=== PATIENT | female | born 1955 | race Caucasian/White ===

== ENCOUNTER 2019-11-11 01:32 | Emergency (ER) | payer BC, MEDICARE, OTHER ==
[~2019-11-11] VITALS: Ht 154.9 cm; Wt 68.0 kg
[~2019-11-11 01:32] MED LIST: META-117; NEBI10TA2 PO; THYR60TA PO
[2019-11-11 02:54] LABS: Basophils # (auto) 0 10 ^3/uL (0-0.2); Basophils % (auto) 0.5 % (0.0-2.0); Eosinophils # (auto) 0.2 10 ^3/uL (0-0.8); Eosinophils % (auto) 1.9 % (0.0-7.0); Hematocrit 44.7 % (36.0-46.0); Hemoglobin 15.5 g/dL (12.2-16.2); Lymphocytes # (auto) 3.1 10 ^3/uL (0.4-5.4); Lymphocytes % (auto) 38.3 % (10.0-50.0); Mean Corpuscular Hemoglobin 31.5 pg (28.0-32.0); Mean Corpuscular Hgb Conc. 34.7 g/dL (32.0-36.0); Mean Corpuscular Volume 90.7 fL (80.0-100.0); Monocytes # (auto) 0.5 10 ^3/uL (0-1.3); Monocytes % (auto) 6.2 % (0.0-12.0); Neutrophils # (auto) 4.3 10 ^3/uL (1.6-8.6); Neutrophils % (auto) 53.1 % (37.0-80.0); Platelet Count (auto) 233 10^3/uL (140-450); Red Blood Cells 4.93 10^6/uL (4.0-5.20); Red Cell Distribution Width 12.7 % (11.8-14.3); White Blood Cell 8.1 10^3/uL (4.4-10.8)
[2019-11-11 03:09] LABS: INR 1.03 (0.9-1.15); Partial Thromboplastin Time 27.8 sec (23.64-32.05)
[2019-11-11 03:16] LABS: Alanine Aminotransferase 50 U/L (13-56); Albumin 3.7 g/dL (3.4-5.0); Anion Gap 6 (5-15); Aspartate Aminotransferase 28 U/L (15-37); Blood Urea Nitrogen 17 mg/dL (7-18); Calcium 9.2 mg/dL (8.5-10.1); Carbon Dioxide 28 mmol/L (21-32); Chloride 100 mmol/L (98-107); Glucose 355 mg/dL (74-106); Magnesium 2.1 mg/dL (1.6-2.6); Potassium 4.4 mmol/L (3.5-5.1); Sodium 134 mmol/L (136-145)
[2019-11-11 03:20] LABS: Alkaline Phosphatase 220 U/L (45-117); BUN/Creatinine Ratio 17.7; Bilirubin, Total 0.4 mg/dL (0.2-1.0); GFR African American 75 mL/min; GFR Non-African American 62 mL/min; Total Protein 7.2 g/dL (6.4-8.2)
[2019-11-11] MEDS ORDERED: cloNIDine HCL 0.1 MG TAB PO ONE (03:30)
[2019-11-11] MEDS ORDERED: OMEPRAZOLE 20MG/10ML ORAL SUSP PO ONE (04:15)
[2019-11-11 04:44] VITALS: BP 129/67
[2019-11-11] MEDS ORDERED: PANTOPRAZOLE 40 MG TAB PO ONE (04:45)
== END 2019-11-11 04:45 | disposition home or self-care (01) ==
LOC: ER 01:35
DX: K21.9 Gastro-esophageal reflux disease without esophagitis (principal); I16.0 Hypertensive urgency; M19.90 Unspecified osteoarthritis, unspecified site; I10 Essential (primary) hypertension; E07.9 Disorder of thyroid, unspecified
CPT/HCPCS: 36415; 71045; 80053; 83735; 83880; 84443; 84484; 85025; 85379; 85610; 85730; 93005

== ENCOUNTER 2020-02-08 18:34 | Emergency (ER) | payer OTHER ==
[~2020-02-08] VITALS: Ht 154.9 cm; Wt 68.0 kg
[~2020-02-08 18:34] MED LIST changes: -META-117; +[UNRECOGNIZED DRUG - CODE]
[2020-02-08 20:43] VITALS: BP 181/65
== END 2020-02-08 20:49 | disposition home or self-care (01) ==
LOC: ER 18:34
DX: S09.90XA Unspecified injury of head, initial encounter (principal); I10 Essential (primary) hypertension; Z90.49 Acquired absence of other specified parts of digestive tract; Z79.899 Other long term (current) drug therapy; W22.8XXA Striking against or struck by other objects, initial encounter; Y93.89 Activity, other specified; Y92.090 Kitchen in other non-institutional residence as the place of occurrence of the external cause; Y99.8 Other external cause status
CPT/HCPCS: 70450

== ENCOUNTER 2021-07-02 09:37 | Inpatient (IN) | payer OTHER ==
[~2021-07-02] VITALS: Ht 154.9 cm; Wt 71.3 kg
[~2021-07-02 09:37] MED LIST changes: +META800T37; -[UNRECOGNIZED DRUG - CODE]
[2021-07-02 10:34] LABS: Basophils # (auto) 0 10 ^3/uL (0-0.2); Basophils % (auto) 0.6 % (0.0-2.0); Eosinophils # (auto) 0.1 10 ^3/uL (0-0.8); Eosinophils % (auto) 1.5 % (0.0-7.0); Hemoglobin 15.5 g/dL (12.2-16.2); Lymphocytes # (auto) 1.8 10 ^3/uL (0.4-5.4); Lymphocytes % (auto) 23.7 % (10.0-50.0); Mean Corpuscular Hemoglobin 30.9 pg (28.0-32.0); Mean Corpuscular Hgb Conc. 34.5 g/dL (32.0-36.0); Mean Corpuscular Volume 89.6 fL (80.0-100.0); Monocytes # (auto) 0.4 10 ^3/uL (0-1.3); Monocytes % (auto) 4.6 % (0.0-12.0); Neutrophils # (auto) 5.4 10 ^3/uL (1.6-8.6); Neutrophils % (auto) 69.6 % (37.0-80.0); Nucleated Red Blood Cells % 0.1 %; Red Blood Cells 5.02 10^6/uL (4.0-5.20); Red Cell Distribution Width 12.6 % (11.8-14.3); White Blood Cell 7.7 10^3/uL (4.4-10.8)
[2021-07-02 10:50] LABS: Albumin 4.1 g/dL (3.4-5.0); Calcium 9.3 mg/dL (8.5-10.1); Potassium 4.3 mmol/L (3.5-5.1)
[2021-07-02 10:56] LABS: Bilirubin, Total 0.5 mg/dL (0.2-1.0); Total Protein 7.6 g/dL (6.4-8.2)
[2021-07-02 13:08] LABS: Urine Bacteria FEW /hpf (None Seen); Urine Blood Negative /uL (Negative); Urine Mucus FEW (None Seen); Urine Specific Gravity 1.008 (1.001-1.035); Urine WBC 6 /hpf (0 - 5)
[2021-07-03] MEDS ORDERED: ONDANSETRON HCL 4 MG/2 ML VIAL IV PRN (03:00)
[2021-07-03 03:42] LABS: Basophils # (auto) 0.1 10 ^3/uL (0-0.2); Basophils % (auto) 0.8 % (0.0-2.0); Eosinophils # (auto) 0.1 10 ^3/uL (0-0.8); Hematocrit 46.8 % (36.0-46.0); Hemoglobin 16.1 g/dL (12.2-16.2); Lymphocytes # (auto) 2.2 10 ^3/uL (0.4-5.4); Lymphocytes % (auto) 24.2 % (10.0-50.0); Mean Corpuscular Hemoglobin 30.7 pg (28.0-32.0); Mean Corpuscular Hgb Conc. 34.3 g/dL (32.0-36.0); Mean Corpuscular Volume 89.3 fL (80.0-100.0); Monocytes # (auto) 0.5 10 ^3/uL (0-1.3); Monocytes % (auto) 5.2 % (0.0-12.0); Neutrophils # (auto) 6.3 10 ^3/uL (1.6-8.6); Neutrophils % (auto) 68.8 % (37.0-80.0); Nucleated Red Blood Cells % 0.2 %; Red Blood Cells 5.25 10^6/uL (4.0-5.20); Red Cell Distribution Width 12.5 % (11.8-14.3); White Blood Cell 9.1 10^3/uL (4.4-10.8)
[2021-07-03 04:00] LABS: Albumin 4.3 g/dL (3.4-5.0); BUN/Creatinine Ratio 19.3; Calcium 9.9 mg/dL (8.5-10.1); Potassium 3.8 mmol/L (3.5-5.1)
[2021-07-03 04:03] LABS: Bilirubin, Total 0.6 mg/dL (0.2-1.0); Total Protein 7.9 g/dL (6.4-8.2)
[2021-07-03] MEDS: cloNIDine HCL 0.1 MG TAB PO PRN ×2 (04:54→12:09)
[2021-07-03 06:23] VITALS: BP 158/72
[2021-07-03] MEDS: SODIUM CHLORIDE 0.9% 1,000 ML IV SCH ×2 (07:03→16:20)
[2021-07-03] MEDS: ENOXAPARIN SOD 40 MG/0.4 ML SYRINGE SC SCH (08:54)
[2021-07-03] MEDS: ASPirin 81 mg TAB PO SCH (08:54)
[2021-07-03] MEDS: amLODIPine BESYLATE 5 MG TAB PO SCH (08:55)
[2021-07-03 09:00] VITALS: BP_SYST 117; BP_SYST 138; BP_DIAS 50; BP_DIAS 65
[2021-07-03] MEDS ORDERED: levoFLOXacin 500MG 100 ML IV SCH (10:00)
[2021-07-03 13:00] VITALS: BP 160/81
[2021-07-03 17:00] VITALS: BP 138/71
[2021-07-03] MEDS ORDERED: ATORVASTATIN 20 MG TAB PO SCH (22:00)
[2021-07-03 22:20] VITALS: BP 145/60
[2021-07-04] MEDS: SODIUM CHLORIDE 0.9% 1,000 ML IV SCH ×2 (02:34→17:01)
[2021-07-04 05:14] VITALS: BP 130/61
[2021-07-04 06:06] LABS: Basophils # (auto) 0 10 ^3/uL (0-0.2); Basophils % (auto) 0.5 % (0.0-2.0); Eosinophils # (auto) 0.2 10 ^3/uL (0-0.8); Eosinophils % (auto) 2.3 % (0.0-7.0); Hematocrit 37.4 % (36.0-46.0); Hemoglobin 13.3 g/dL (12.2-16.2); Lymphocytes # (auto) 2.2 10 ^3/uL (0.4-5.4); Lymphocytes % (auto) 30.7 % (10.0-50.0); Mean Corpuscular Hemoglobin 31.3 pg (28.0-32.0); Mean Corpuscular Hgb Conc. 35.4 g/dL (32.0-36.0); Mean Corpuscular Volume 88.4 fL (80.0-100.0); Monocytes # (auto) 0.4 10 ^3/uL (0-1.3); Monocytes % (auto) 6.3 % (0.0-12.0); Neutrophils # (auto) 4.2 10 ^3/uL (1.6-8.6); Neutrophils % (auto) 60.2 % (37.0-80.0); Red Blood Cells 4.24 10^6/uL (4.0-5.20); Red Cell Distribution Width 12.7 % (11.8-14.3)
[2021-07-04 06:42] LABS: Potassium 4.2 mmol/L (3.5-5.1)
[2021-07-04 06:52] LABS: BUN/Creatinine Ratio 19.5; Calcium 8.8 mg/dL (8.5-10.1)
[2021-07-04] MEDS: levoFLOXacin 250MG 50 ML IV SCH (08:24)
[2021-07-04] MEDS: ASPirin 81 mg TAB PO SCH ×2 (08:24→16:58)
[2021-07-04] MEDS: ENOXAPARIN SOD 40 MG/0.4 ML SYRINGE SC SCH (08:24)
[2021-07-04] MEDS: amLODIPine BESYLATE 5 MG TAB PO SCH (08:25)
[2021-07-04 09:21] VITALS: BP 122/78
[2021-07-04 12:26] VITALS: BP 156/74
[2021-07-04 15:54] LABS: Cholesterol 180 mg/dL (< 200); HDL Cholesterol 41 mg/dL (40-59); LDL Cholesterol 118 mg/dL (< 100); Triglycerides 137 mg/dL (< 150)
[2021-07-04 16:21] VITALS: BP 144/77
[2021-07-04] MEDS: ATORVASTATIN 20 MG TAB PO SCH ×2 (17:01→22:27)
[2021-07-04 20:00] VITALS: BP 133/68
[2021-07-04 22:52] VITALS: BP 133/68
[2021-07-05 05:23] VITALS: BP 154/71
[2021-07-05 06:00] LABS: Basophils # (auto) 0.1 10 ^3/uL (0-0.2); Basophils % (auto) 1.3 % (0.0-2.0); Eosinophils # (auto) 0.2 10 ^3/uL (0-0.8); Eosinophils % (auto) 2.4 % (0.0-7.0); Hematocrit 38.1 % (36.0-46.0); Hemoglobin 13.5 g/dL (12.2-16.2); Lymphocytes # (auto) 2.4 10 ^3/uL (0.4-5.4); Lymphocytes % (auto) 33.6 % (10.0-50.0); Mean Corpuscular Hemoglobin 31.4 pg (28.0-32.0); Mean Corpuscular Hgb Conc. 35.5 g/dL (32.0-36.0); Mean Corpuscular Volume 88.5 fL (80.0-100.0); Monocytes # (auto) 0.5 10 ^3/uL (0-1.3); Monocytes % (auto) 6.6 % (0.0-12.0); Neutrophils # (auto) 3.9 10 ^3/uL (1.6-8.6); Neutrophils % (auto) 56.1 % (37.0-80.0); Red Cell Distribution Width 12.4 % (11.8-14.3)
[2021-07-05 06:18] LABS: Calcium 9.1 mg/dL (8.5-10.1); Potassium 4.4 mmol/L (3.5-5.1)
[2021-07-05 06:20] LABS: BUN/Creatinine Ratio 21.6
[2021-07-05 08:32] VITALS: BP 154/83
[2021-07-05] MEDS: levoFLOXacin 250MG 50 ML IV SCH (09:45)
[2021-07-05] MEDS: amLODIPine BESYLATE 5 MG TAB PO SCH (09:46)
[2021-07-05] MEDS: ASPirin 81 mg TAB PO SCH (09:46)
[2021-07-05] MEDS: SODIUM CHLORIDE 0.9% 1,000 ML IV SCH (09:47)
[2021-07-05] MEDS: ENOXAPARIN SOD 40 MG/0.4 ML SYRINGE SC SCH (09:56)
[2021-07-05 13:00] VITALS: BP 140/67
[2021-07-05 17:14] VITALS: BP 152/75
[2021-07-05] MEDS: ATORVASTATIN 20 MG TAB PO SCH (21:06)
[2021-07-05 22:00] VITALS: BP 152/71
[2021-07-06] MEDS ORDERED: TEMAZEPAM 15 MG CAP PO ONE (01:00)
[2021-07-06 05:00] VITALS: BP 126/60
[2021-07-06] MEDS: SODIUM CHLORIDE 0.9% 1,000 ML IV SCH ×3 (05:44→21:52)
[2021-07-06 06:55] LABS: Basophils # (auto) 0.1 10 ^3/uL (0-0.2); Basophils % (auto) 0.5 % (0.0-2.0); Eosinophils # (auto) 0.2 10 ^3/uL (0-0.8); Eosinophils % (auto) 1.7 % (0.0-7.0); Hematocrit 38.1 % (36.0-46.0); Hemoglobin 13.4 g/dL (12.2-16.2); Lymphocytes # (auto) 2.1 10 ^3/uL (0.4-5.4); Lymphocytes % (auto) 21.6 % (10.0-50.0); Mean Corpuscular Hemoglobin 31.2 pg (28.0-32.0); Mean Corpuscular Hgb Conc. 35.2 g/dL (32.0-36.0); Mean Corpuscular Volume 88.6 fL (80.0-100.0); Monocytes # (auto) 0.6 10 ^3/uL (0-1.3); Monocytes % (auto) 6.5 % (0.0-12.0); Neutrophils # (auto) 6.7 10 ^3/uL (1.6-8.6); Neutrophils % (auto) 69.7 % (37.0-80.0); Nucleated Red Blood Cells % 0.1 %; Red Blood Cells 4.31 10^6/uL (4.0-5.20); Red Cell Distribution Width 12.5 % (11.8-14.3); White Blood Cell 9.6 10^3/uL (4.4-10.8)
[2021-07-06 07:06] LABS: Calcium 9.3 mg/dL (8.5-10.1); Potassium 4.2 mmol/L (3.5-5.1)
[2021-07-06 07:13] LABS: BUN/Creatinine Ratio 18.3
[2021-07-06] MEDS: levoFLOXacin 250MG 50 ML IV SCH (08:48)
[2021-07-06] MEDS: amLODIPine BESYLATE 5 MG TAB PO SCH (08:48)
[2021-07-06] MEDS: ASPirin 81 mg TAB PO SCH (08:48)
[2021-07-06] MEDS: ENOXAPARIN SOD 40 MG/0.4 ML SYRINGE SC SCH (08:49)
[2021-07-06 08:52] VITALS: BP 148/75
[2021-07-06 13:10] VITALS: BP 135/67
[2021-07-06 16:55] VITALS: BP 144/80
[2021-07-06] MEDS: ATORVASTATIN 20 MG TAB PO SCH (21:47)
[2021-07-06 22:23] VITALS: BP 148/75
[2021-07-07 04:38] VITALS: BP 162/68
[2021-07-07] MEDS: amLODIPine BESYLATE 5 MG TAB PO SCH (06:03)
[2021-07-07 07:01] LABS: Potassium 4.1 mmol/L (3.5-5.1)
[2021-07-07 07:06] LABS: BUN/Creatinine Ratio 20.5; Calcium 8.5 mg/dL (8.5-10.1)
[2021-07-07 07:12] LABS: Basophils # (auto) 0.1 10 ^3/uL (0-0.2); Basophils % (auto) 0.7 % (0.0-2.0); Eosinophils # (auto) 0.2 10 ^3/uL (0-0.8); Hematocrit 38.6 % (36.0-46.0); Hemoglobin 13.5 g/dL (12.2-16.2); Lymphocytes # (auto) 2.3 10 ^3/uL (0.4-5.4); Lymphocytes % (auto) 27.4 % (10.0-50.0); Mean Corpuscular Hemoglobin 31.1 pg (28.0-32.0); Mean Corpuscular Volume 88.9 fL (80.0-100.0); Monocytes # (auto) 0.6 10 ^3/uL (0-1.3); Monocytes % (auto) 6.6 % (0.0-12.0); Neutrophils # (auto) 5.3 10 ^3/uL (1.6-8.6); Neutrophils % (auto) 63.3 % (37.0-80.0); Nucleated Red Blood Cells % 0.1 %; Red Blood Cells 4.34 10^6/uL (4.0-5.20); Red Cell Distribution Width 12.4 % (11.8-14.3); White Blood Cell 8.3 10^3/uL (4.4-10.8)
[2021-07-07 09:00] VITALS: BP 147/57
[2021-07-07] MEDS: levoFLOXacin 250MG 50 ML IV SCH (09:22)
[2021-07-07] MEDS: ENOXAPARIN SOD 40 MG/0.4 ML SYRINGE SC SCH (09:22)
[2021-07-07] MEDS: ASPirin 81 mg TAB PO SCH (09:22)
[2021-07-07] MEDS ORDERED: LEVO750T64 PO (09:37)
[2021-07-07] MEDS ORDERED: ASPI1CHW15 PO (09:37)
[2021-07-07] MEDS ORDERED: ATOR20TA50 PO (09:37)
[2021-07-07] MEDS ORDERED: AML5T PO (09:37)
[2021-07-07 12:27] VITALS: BP 147/75
[2021-07-07] MEDS: SODIUM CHLORIDE 0.9% 1,000 ML IV SCH (13:18)
[2021-07-10] MEDS ORDERED: ATOR20TA50 PO (15:28)
[2021-07-12] MEDS ORDERED: AML5T PO (11:35)
[2021-07-12] MEDS ORDERED: ASPI1TAB20 PO (11:35)
[2021-07-12] MEDS ORDERED: LEVO750T64 PO (11:35)
[2021-07-12] MEDS ORDERED: ATOR40TA52 PO (11:35)
== END 2021-07-07 15:32 | disposition home or self-care (01) | DRG 65 ==
LOC: ER 09:37 → OVERFLOW 07-03 02:56 → CENTRAL 07-03 05:10
PROVIDERS: ADMIT Nurse Practitioner; ATTEND Internal Medicine Pulmonary Disease
DX: I63.89 Other cerebral infarction (principal); N39.0 Urinary tract infection, site not specified; G81.90 Hemiplegia, unspecified affecting unspecified side; I10 Essential (primary) hypertension; E03.9 Hypothyroidism, unspecified; R47.01 Aphasia; E78.5 Hyperlipidemia, unspecified; Z20.822 Contact with and (suspected) exposure to COVID-19; M19.90 Unspecified osteoarthritis, unspecified site; Z79.82 Long term (current) use of aspirin; Z88.0 Allergy status to penicillin; Z80.1 Family history of malignant neoplasm of trachea, bronchus and lung; Z80.3 Family history of malignant neoplasm of breast; Z80.41 Family history of malignant neoplasm of ovary; Z80.8 Family history of malignant neoplasm of other organs or systems; Z81.8 Family history of other mental and behavioral disorders; Z82.0 Family history of epilepsy and other diseases of the nervous system; Z82.3 Family history of stroke; Z82.49 Family history of ischemic heart disease and other diseases of the circulatory system; Z82.5 Family history of asthma and other chronic lower respiratory diseases; Z82.62 Family history of osteoporosis; Z83.3 Family history of diabetes mellitus; Z90.710 Acquired absence of both cervix and uterus; Z98.51 Tubal ligation status
CPT/HCPCS: 36415; 70450; 70551; 80048; 80053; 80061; 81001; 82270; 82550; 84443; 85025; 87426; 93005; 93306; 93886; 96365; 96372; G0378; J1956

== ENCOUNTER 2021-10-09 22:19 | Inpatient (IN) | payer OTHER ==
[~2021-10-09] VITALS: Ht 154.9 cm; Wt 67.7 kg
[~2021-10-09 22:19] MED LIST changes: +AML5T PO; +ASPI1CHW15 PO; +ASPI1TAB20 PO; +ATOR20TA50 PO; +ATOR40TA52 PO; +LEVO750T64 PO; -META800T37; -NEBI10TA2 PO; -THYR60TA PO
[2021-10-09] MEDS ORDERED: LABETALOL HCL 5 MG/ML 4ML SYRINGE IV ONE (22:45)
[2021-10-09] MEDS ORDERED: SODIUM CHLORIDE 0.9% 1,000 ML IV ONE (23:30)
[2021-10-09 23:31] LABS: Basophils # (auto) 0.1 10 ^3/uL (0-0.2); Basophils % (auto) 0.9 % (0.0-2.0); Eosinophils # (auto) 0.3 10 ^3/uL (0-0.8); Eosinophils % (auto) 3.5 % (0.0-7.0); Hematocrit 42.2 % (36.0-46.0); Hemoglobin 14.7 g/dL (12.2-16.2); Lymphocytes % (auto) 40.9 % (10.0-50.0); Mean Corpuscular Hemoglobin 31.1 pg (28.0-32.0); Mean Corpuscular Hgb Conc. 34.8 g/dL (32.0-36.0); Mean Corpuscular Volume 89.5 fL (80.0-100.0); Monocytes # (auto) 0.3 10 ^3/uL (0-1.3); Monocytes % (auto) 4.4 % (0.0-12.0); Neutrophils # (auto) 3.7 10 ^3/uL (1.6-8.6); Neutrophils % (auto) 50.3 % (37.0-80.0); Nucleated Red Blood Cells % 0.1 %; Red Blood Cells 4.72 10^6/uL (4.0-5.20); Red Cell Distribution Width 13.8 % (11.8-14.3); White Blood Cell 7.4 10^3/uL (4.4-10.8)
[2021-10-09 23:49] LABS: Albumin 4.2 g/dL (3.4-5.0); Calcium 9.4 mg/dL (8.5-10.1); Potassium 3.3 mmol/L (3.5-5.1)
[2021-10-09 23:52] LABS: Bilirubin, Total 0.4 mg/dL (0.2-1.0); Total Protein 7.4 g/dL (6.4-8.2)
[2021-10-09] MEDS ORDERED: IOHEXOL 350 MG/ML 100ML IJ ONE (23:53)
[2021-10-10] MEDS ORDERED: LABETALOL INJECTION 250 MG in SODIUM CHL 0.9% 200 ML IV ONE (02:30)
[2021-10-10] MEDS ORDERED: cloNIDine HCL 0.1 MG TAB PO PRN (03:00)
[2021-10-10] MEDS ORDERED: TEMAZEPAM 15 MG CAP PO PRN (03:15)
[2021-10-10] MEDS ORDERED: NITROGLYCERIN 0.4 MG SL TAB SL PRN (03:15)
[2021-10-10] MEDS ORDERED: ONDANSETRON HCL 4 MG/2 ML VIAL IV PRN (03:15)
[2021-10-10] MEDS ORDERED: ACETAMINOPHEN 325 MG TAB PO PRN (03:15)
[2021-10-10] MEDS ORDERED: MORPHINE SULFATE INJECTION 2 MG/ML SYRG IV PRN (03:15)
[2021-10-10 05:32] VITALS: BP_SYST 170; BP_DIAS 61; BP_DIAS 67
[2021-10-10 08:55] VITALS: BP 129/57
[2021-10-10] MEDS ORDERED: ASPirin 81 mg TAB PO SCH (10:00)
[2021-10-10] MEDS: VALSARTAN 80 MG TAB PO SCH (11:27)
[2021-10-10] MEDS: ENOXAPARIN SOD 40 MG/0.4 ML SYRINGE SC SCH (11:28)
[2021-10-10] MEDS: amLODIPine BESYLATE 5 MG TAB PO SCH (11:28)
[2021-10-10] MEDS ORDERED: DEXTROSE (50%) 50ML SYRG IV PRN (12:30)
[2021-10-10] MEDS ORDERED: POTASSIUM EFFERVESENT TAB 25 MEQ PO ONE (12:30)
[2021-10-10 13:00] VITALS: BP 149/57
[2021-10-10 17:00] VITALS: BP 138/73
[2021-10-10 17:29] LABS: Urine Bacteria NONE SEEN /hpf (None Seen); Urine Blood Negative /uL (Negative); Urine Specific Gravity 1.005 (1.001-1.035); Urine WBC <1 /hpf (0 - 5)
[2021-10-10 17:30] LABS: Alcohol, Urine < 3.0 mg/dL (0-10); Amphetamine Screen, Urine NEGATIVE (NEGATIVE); Barbiturate Scree,Urine NEGATIVE (NEGATIVE); Benzodiazephine Screen, Urine NEGATIVE (NEGATIVE); Cannabinoid Screen, Urine NEGATIVE (NEGATIVE); Cocaine Screen, Urine NEGATIVE (NEGATIVE); Opiate Scree,Urine NEGATIVE (NEGATIVE); Phencyclidine Screen, Urine NEGATIVE (NEGATIVE)
[2021-10-10] MEDS: InsuLIN REG 1unit/0.01ml Soln (100units/ml) SC SCH ×2 (18:00→23:44)
[2021-10-10] MEDS: ACCU-CHEK COMFORT CURVE STRIP VI SCH ×2 (18:07→23:44)
[2021-10-10 22:00] VITALS: BP 130/77
[2021-10-10] MEDS ORDERED: ATORVASTATIN 20 MG TAB PO SCH (22:00)
[2021-10-11 05:00] VITALS: BP 128/53
[2021-10-11] MEDS: InsuLIN REG 1unit/0.01ml Soln (100units/ml) SC SCH ×2 (05:42→12:19)
[2021-10-11] MEDS: ACCU-CHEK COMFORT CURVE STRIP VI SCH ×2 (05:42→12:00)
[2021-10-11 06:34] LABS: Basophils # (auto) 0 10 ^3/uL (0-0.2); Basophils % (auto) 0.7 % (0.0-2.0); Eosinophils # (auto) 0.2 10 ^3/uL (0-0.8); Eosinophils % (auto) 2.7 % (0.0-7.0); Hematocrit 38.8 % (36.0-46.0); Hemoglobin 13.7 g/dL (12.2-16.2); Lymphocytes # (auto) 2.4 10 ^3/uL (0.4-5.4); Lymphocytes % (auto) 36.1 % (10.0-50.0); Mean Corpuscular Hemoglobin 31.7 pg (28.0-32.0); Mean Corpuscular Hgb Conc. 35.4 g/dL (32.0-36.0); Mean Corpuscular Volume 89.7 fL (80.0-100.0); Monocytes # (auto) 0.4 10 ^3/uL (0-1.3); Monocytes % (auto) 6.1 % (0.0-12.0); Neutrophils # (auto) 3.7 10 ^3/uL (1.6-8.6); Neutrophils % (auto) 54.4 % (37.0-80.0); Nucleated Red Blood Cells % 0.1 %; Red Blood Cells 4.33 10^6/uL (4.0-5.20); Red Cell Distribution Width 13.7 % (11.8-14.3); White Blood Cell 6.8 10^3/uL (4.4-10.8)
[2021-10-11 07:00] LABS: Calcium 9.4 mg/dL (8.5-10.1); Magnesium 2.4 mg/dL (1.6-2.6); Potassium 4.2 mmol/L (3.5-5.1)
[2021-10-11 07:06] LABS: Albumin 3.5 g/dL (3.4-5.0); BUN/Creatinine Ratio 15.5; Bilirubin, Total 0.5 mg/dL (0.2-1.0); Total Protein 6.7 g/dL (6.4-8.2)
[2021-10-11] MEDS: VALSARTAN 80 MG TAB PO SCH (08:32)
[2021-10-11] MEDS: amLODIPine BESYLATE 5 MG TAB PO SCH (08:32)
[2021-10-11] MEDS: ENOXAPARIN SOD 40 MG/0.4 ML SYRINGE SC SCH (08:33)
[2021-10-11 09:03] VITALS: BP 150/67
[2021-10-11] MEDS ORDERED: ASPirin 81 mg TAB PO SCH (10:00)
[2021-10-11] MEDS ORDERED: CLOPIDOGREL BISULFATE 75 MG TAB PO SCH (10:00)
[2021-10-11 13:00] VITALS: BP 139/57
[2021-10-11] MEDS ORDERED: VALS40TA2 PO (13:36)
[2021-10-11] MEDS ORDERED: VALS80TA4 PO (13:58)
[2021-10-11] MEDS ORDERED: CLOP75TA28 PO (13:58)
[2021-10-11] MEDS ORDERED: ASPI-378 PO (13:58)
[2021-10-11] MEDS ORDERED: AML5T PO (14:10)
[2021-10-11 17:21] VITALS: BP 131/71
[2021-10-11 17:22] VITALS: BP 150/67
== END 2021-10-11 19:48 | disposition home or self-care (01) | DRG 66 ==
LOC: EDBD 22:19 → ER 22:19 → TELE 10-10 03:02 → TELE-EAST 10-10 04:54
PROVIDERS: ADMIT Nurse Practitioner; ATTEND Internal Medicine
DX: I63.512 Cerebral infarction due to unspecified occlusion or stenosis of left middle cerebral artery (principal); E03.9 Hypothyroidism, unspecified; E87.6 Hypokalemia; E78.5 Hyperlipidemia, unspecified; R47.01 Aphasia; R73.03 Prediabetes; Z90.49 Acquired absence of other specified parts of digestive tract; Z98.51 Tubal ligation status; Z82.61 Family history of arthritis; Z82.5 Family history of asthma and other chronic lower respiratory diseases; Z82.49 Family history of ischemic heart disease and other diseases of the circulatory system; Z82.62 Family history of osteoporosis; Z80.3 Family history of malignant neoplasm of breast; Z80.1 Family history of malignant neoplasm of trachea, bronchus and lung; Z80.42 Family history of malignant neoplasm of prostate; Z80.8 Family history of malignant neoplasm of other organs or systems; Z88.0 Allergy status to penicillin; I10 Essential (primary) hypertension
CPT/HCPCS: 36415; 70450; 70496; 70498; 70551; 80053; 80307; 81001; 82306; 82962; 83036; 83735; 84443; 85025; 92607; 93005; 96361; 96374; 99291; G0378; J1815; J3490

== ENCOUNTER 2024-01-31 22:21 | Inpatient (IN) | payer OTHER ==
[~2024-01-31] VITALS: Ht 154.9 cm; Wt 68.5 kg
[~2024-01-31 22:21] MED LIST changes: -ASPI1CHW15 PO; -ASPI1TAB20 PO; -ATOR20TA50 PO; +CLOP75TA28 PO; +LEVO750T40 PO; -LEVO750T64 PO; +VALS80TA4 PO
[2024-01-31] MEDS: hydrALAZINE HCL 20 MG/ML VL IV ONE (23:45)
[2024-01-31] MEDS: cloNIDine HCL 0.1 MG TAB PO ONE (23:45)
[2024-02-01 00:23] LABS: Basophils # (auto) 0.1 10 ^3/uL (0-0.2); Basophils % (auto) 0.7 % (0.0-2.0); Eosinophils # (auto) 0.1 10 ^3/uL (0-0.8); Eosinophils % (auto) 1.3 % (0.0-7.0); Hematocrit 45.5 % (36.0-46.0); Hemoglobin 15.7 g/dL (12.2-16.2); Lymphocytes # (auto) 2.7 10 ^3/uL (0.4-5.4); Lymphocytes % (auto) 33.5 % (10.0-50.0); Mean Corpuscular Hemoglobin 31.7 pg (28.0-32.0); Mean Corpuscular Hgb Conc. 34.4 g/dL (32.0-36.0); Mean Corpuscular Volume 92.2 fL (80.0-100.0); Monocytes # (auto) 0.5 10 ^3/uL (0-1.3); Monocytes % (auto) 6.3 % (0.0-12.0); Neutrophils # (auto) 4.7 10 ^3/uL (1.6-8.6); Neutrophils % (auto) 58.2 % (37.0-80.0); Nucleated Red Blood Cells % 0.1 %; Red Blood Cells 4.94 10^6/uL (4.0-5.20); Red Cell Distribution Width 13.1 % (11.8-14.3); White Blood Cell 8.1 10^3/uL (4.4-10.8)
[2024-02-01 00:39] LABS: Alanine Aminotransferase 47 U/L (7-40); Albumin 4.5 g/dL (3.2-4.8); Alkaline Phosphatase 126 U/L (46-116); Anion Gap 7 (5-15); Aspartate Aminotransferase 35 U/L (13-40); BUN/Creatinine Ratio 11.8 (10.0-20.0); Blood Urea Nitrogen 12 mg/dL (9-23); Calcium 10.3 mg/dL (8.7-10.4); Carbon Dioxide 28 mmol/L (20-30); Chloride 104 mmol/L (98-107); Glucose 127 mg/dL (74-106); Potassium 4.2 mmol/L (3.5-5.1); Sodium 139 mmol/L (136-145)
[2024-02-01 00:40] LABS: Bilirubin, Total 0.4 mg/dL (0.2-1.0); Total Protein 7.2 g/dL (5.7-8.2)
[2024-02-01 01:35] VITALS: PULSE 64; RESP 18; O2SAT 99
[2024-02-01] MEDS: hydrALAZINE HCL 20 MG/ML VL IV ONE (01:42)
[2024-02-01] MEDS: ASPirin 81 mg TAB PO ONE (02:38)
[2024-02-01] MEDS: cloNIDine HCL 0.1 MG TAB PO ONE (02:39)
[2024-02-01] MEDS ORDERED: hydrALAZINE HCL 20 MG/ML VL IV PRN (04:30)
[2024-02-01] MEDS ORDERED: ONDANSETRON HCL 4 MG/2 ML VIAL IV PRN (04:30)
[2024-02-01] MEDS ORDERED: DOCUSATE SOD 100 MG CAP PO PRN (04:30)
[2024-02-01] MEDS ORDERED: ACETAMINOPHEN 325 MG TAB PO PRN (04:30)
[2024-02-01 05:14] LABS: Basophils # (auto) 0.1 10 ^3/uL (0-0.2); Basophils % (auto) 0.8 % (0.0-2.0); Eosinophils # (auto) 0.1 10 ^3/uL (0-0.8); Eosinophils % (auto) 1.2 % (0.0-7.0); Hematocrit 41.6 % (36.0-46.0); Hemoglobin 14.6 g/dL (12.2-16.2); Lymphocytes # (auto) 2.9 10 ^3/uL (0.4-5.4); Lymphocytes % (auto) 31.5 % (10.0-50.0); Mean Corpuscular Hemoglobin 31.9 pg (28.0-32.0); Mean Corpuscular Hgb Conc. 35.1 g/dL (32.0-36.0); Mean Corpuscular Volume 90.9 fL (80.0-100.0); Monocytes # (auto) 0.5 10 ^3/uL (0-1.3); Monocytes % (auto) 5.3 % (0.0-12.0); Neutrophils # (auto) 5.7 10 ^3/uL (1.6-8.6); Neutrophils % (auto) 61.2 % (37.0-80.0); Nucleated Red Blood Cells % 0.1 %; Red Blood Cells 4.57 10^6/uL (4.0-5.20); Red Cell Distribution Width 13.3 % (11.8-14.3); White Blood Cell 9.3 10^3/uL (4.4-10.8)
[2024-02-01 05:35] LABS: Alanine Aminotransferase 35 U/L (7-40); Albumin 4.2 g/dL (3.2-4.8); Alkaline Phosphatase 111 U/L (46-116); Anion Gap 10 (5-15); Aspartate Aminotransferase 28 U/L (13-40); BUN/Creatinine Ratio 19.5 (10.0-20.0); Bilirubin, Total 0.4 mg/dL (0.2-1.0); Blood Urea Nitrogen 15 mg/dL (9-23); Calcium 9.6 mg/dL (8.7-10.4); Carbon Dioxide 23 mmol/L (20-30); Chloride 107 mmol/L (98-107); Glucose 149 mg/dL (74-106); Potassium 3.7 mmol/L (3.5-5.1); Sodium 140 mmol/L (136-145); Total Protein 6.3 g/dL (5.7-8.2)
[2024-02-01] MEDS ORDERED: MORPHINE SULFATE INJ 2 MG/ml SYRG IV PRN (06:00)
[2024-02-01] MEDS ORDERED: NITROGLYCERIN 0.4 MG SL TAB SL PRN (06:00)
[2024-02-01 07:20] VITALS: PULSE 56; RESP 16; O2SAT 95
[2024-02-01] MEDS: ASPirin 81 mg TAB PO SCH (09:39)
[2024-02-01] MEDS: HYDROcodone-ACET 5/325MG TAB PO PRN (09:40)
[2024-02-01] MEDS: METOPROLOL TARTRATE 25 MG TAB PO SCH (09:46)
[2024-02-01] MEDS: amLODIPine BESYLATE 5 MG TAB PO SCH (10:00)
[2024-02-01 17:48] VITALS: BP 146/51; PULSE 64; RESP 17; TEMP 98.4; O2SAT 95
[2024-02-01 18:13] VITALS: RESP 16
[2024-02-01 20:00] VITALS: PULSE 72
[2024-02-01 21:00] VITALS: BP 154/60; PULSE 65; RESP 15; TEMP 98.2; O2SAT 95
[2024-02-01] MEDS: ATORVASTATIN 20 MG TAB PO SCH (22:09)
[2024-02-02 01:00] VITALS: BP 137/61; PULSE 56; RESP 16; TEMP 98.1; O2SAT 98
[2024-02-02 05:00] VITALS: BP 129/69; PULSE 57; RESP 17; TEMP 98.4; O2SAT 96
[2024-02-02 07:14] LABS: Basophils # (auto) 0 10 ^3/uL (0-0.2); Basophils % (auto) 0.5 % (0.0-2.0); Eosinophils # (auto) 0.1 10 ^3/uL (0-0.8); Eosinophils % (auto) 1.5 % (0.0-7.0); Hematocrit 46.4 % (36.0-46.0); Hemoglobin 16.1 g/dL (12.2-16.2); Lymphocytes # (auto) 2.7 10 ^3/uL (0.4-5.4); Lymphocytes % (auto) 33.4 % (10.0-50.0); Mean Corpuscular Hemoglobin 32.2 pg (28.0-32.0); Mean Corpuscular Hgb Conc. 34.8 g/dL (32.0-36.0); Mean Corpuscular Volume 92.5 fL (80.0-100.0); Monocytes # (auto) 0.4 10 ^3/uL (0-1.3); Monocytes % (auto) 4.6 % (0.0-12.0); Neutrophils # (auto) 4.8 10 ^3/uL (1.6-8.6); Red Blood Cells 5.01 10^6/uL (4.0-5.20); Red Cell Distribution Width 13.6 % (11.8-14.3)
[2024-02-02 07:34] LABS: Alanine Aminotransferase 41 U/L (7-40); Albumin 4.7 g/dL (3.2-4.8); Alkaline Phosphatase 116 U/L (46-116); Anion Gap 5 (5-15); Aspartate Aminotransferase 17 U/L (13-40); BUN/Creatinine Ratio 16.8 (10.0-20.0); Bilirubin, Total 0.8 mg/dL (0.2-1.0); Blood Urea Nitrogen 16 mg/dL (9-23); Calcium 10.2 mg/dL (8.7-10.4); Carbon Dioxide 28 mmol/L (20-30); Chloride 106 mmol/L (98-107); Glucose 117 mg/dL (74-106); Potassium 4.2 mmol/L (3.5-5.1); Sodium 139 mmol/L (136-145); Total Protein 7.2 g/dL (5.7-8.2)
[2024-02-02 08:00] VITALS: PULSE 54; PULSE 66; RESP 17; O2SAT 98
[2024-02-02 09:00] VITALS: BP 137/66; PULSE 66; RESP 17; TEMP 98.3; O2SAT 98
[2024-02-02] MEDS ORDERED: AMLO1TAB23 PO (09:22)
[2024-02-02] MEDS ORDERED: METO25TA5 PO (09:22)
[2024-02-02 11:30] VITALS: BP 119/63; PULSE 71; RESP 16; TEMP 98.1; O2SAT 96
[2024-02-02 12:07] VITALS: BP 137/66; PULSE 66; RESP 17; TEMP 98.3; O2SAT 98
== END 2024-02-02 12:54 | disposition home or self-care (01) | DRG 305 ==
LOC: ER 22:21 → TELE 02-01 05:55 → TELE-CENTR 02-01 05:55
PROVIDERS: ADMIT Nurse Practitioner Family; ATTEND Nurse Practitioner Family
DX: I16.9 Hypertensive crisis, unspecified (principal); I67.4 Hypertensive encephalopathy; E03.9 Hypothyroidism, unspecified; E78.00 Pure hypercholesterolemia, unspecified; I10 Essential (primary) hypertension; F41.9 Anxiety disorder, unspecified; Z86.73 Personal history of transient ischemic attack (TIA), and cerebral infarction without residual deficits; Z88.0 Allergy status to penicillin; Z79.899 Other long term (current) drug therapy; Z90.710 Acquired absence of both cervix and uterus; Z63.4 Disappearance and death of family member
CPT/HCPCS: 36415; 80053; 84484; 85025; 96374; G0378

== ENCOUNTER 2024-02-04 00:42 | Emergency (ER) | payer OTHER ==
[~2024-02-04] VITALS: Ht 154.9 cm; Wt 68.6 kg
[~2024-02-04 00:42] MED LIST changes: +AMLO1TAB23 PO; +METO25TA5 PO
[2024-02-04 02:21] LABS: Basophils # (auto) 0 10 ^3/uL (0-0.2); Basophils % (auto) 0.4 % (0.0-2.0); Eosinophils # (auto) 0.2 10 ^3/uL (0-0.8); Eosinophils % (auto) 1.4 % (0.0-7.0); Hematocrit 47.9 % (36.0-46.0); Hemoglobin 16.7 g/dL (12.2-16.2); Lymphocytes # (auto) 3.2 10 ^3/uL (0.4-5.4); Lymphocytes % (auto) 30.1 % (10.0-50.0); Mean Corpuscular Hgb Conc. 34.8 g/dL (32.0-36.0); Mean Corpuscular Volume 91.8 fL (80.0-100.0); Monocytes # (auto) 0.5 10 ^3/uL (0-1.3); Monocytes % (auto) 5.1 % (0.0-12.0); Neutrophils # (auto) 6.7 10 ^3/uL (1.6-8.6); Nucleated Red Blood Cells % 0.1 %; Red Blood Cells 5.22 10^6/uL (4.0-5.20); Red Cell Distribution Width 13.3 % (11.8-14.3); White Blood Cell 10.7 10^3/uL (4.4-10.8)
[2024-02-04 02:38] LABS: Alanine Aminotransferase 39 U/L (7-40); Alkaline Phosphatase 131 U/L (46-116); Anion Gap 9 (5-15); BUN/Creatinine Ratio 13.7 (10.0-20.0); Blood Urea Nitrogen 13 mg/dL (9-23); Calcium 10.7 mg/dL (8.7-10.4); Carbon Dioxide 28 mmol/L (20-30); Chloride 104 mmol/L (98-107); Glucose 130 mg/dL (74-106); Potassium 4.7 mmol/L (3.5-5.1); Sodium 141 mmol/L (136-145)
[2024-02-04 02:39] LABS: Albumin 4.9 g/dL (3.2-4.8); Aspartate Aminotransferase 28 U/L (13-40); Bilirubin, Total 0.6 mg/dL (0.2-1.0)
[2024-02-04] MEDS: hydrALAZINE HCL 20 MG/ML VL IV ONE (02:42)
[2024-02-04] MEDS: cloNIDine HCL 0.1 MG TAB PO ONE (02:43)
[2024-02-04 03:00] VITALS: PULSE 68; RESP 17; O2SAT 97
[2024-02-04 03:45] VITALS: PULSE 59; RESP 22; TEMP 98.6; O2SAT 99
[2024-02-04] MEDS ORDERED: LOSA-534 PO (04:52)
[2024-02-04 05:00] VITALS: BP 119/60; PULSE 52; RESP 16; O2SAT 97
== END 2024-02-04 05:05 | disposition home or self-care (01) ==
LOC: ER 00:42
DX: I10 Essential (primary) hypertension (principal); E78.5 Hyperlipidemia, unspecified; E03.9 Hypothyroidism, unspecified; Z88.0 Allergy status to penicillin; Z79.899 Other long term (current) drug therapy; Z79.891 Long term (current) use of opiate analgesic; Z86.73 Personal history of transient ischemic attack (TIA), and cerebral infarction without residual deficits; Z90.89 Acquired absence of other organs; Z90.710 Acquired absence of both cervix and uterus; Z98.890 Other specified postprocedural states
CPT/HCPCS: 36415; 70450; 80053; 85025; 96374; 99285; J0360

== ENCOUNTER 2024-11-21 21:00 | Emergency (ER) | payer OTHER ==
[~2024-11-21] VITALS: Ht 154.9 cm; Wt 67.7 kg
[~2024-11-21 21:00] MED LIST changes: +LOSA-534 PO
[2024-11-21 21:48] LABS: Basophils # (auto) 0.1 10 ^3/uL (0-0.2); Basophils % (auto) 0.9 % (0.0-2.0); Eosinophils # (auto) 0.2 10 ^3/uL (0-0.8); Eosinophils % (auto) 1.9 % (0.0-7.0); Hematocrit 47.8 % (36.0-46.0); Hemoglobin 16.6 g/dL (12.2-16.2); Lymphocytes % (auto) 30.8 % (10.0-50.0); Mean Corpuscular Hemoglobin 31.4 pg (28.0-32.0); Mean Corpuscular Hgb Conc. 34.7 g/dL (32.0-36.0); Mean Corpuscular Volume 90.5 fL (80.0-100.0); Monocytes # (auto) 0.4 10 ^3/uL (0-1.3); Monocytes % (auto) 4.4 % (0.0-12.0); Neutrophils # (auto) 6.1 10 ^3/uL (1.6-8.6); Platelet Count (auto) 274 10^3/uL (140-450); Red Blood Cells 5.28 10^6/uL (4.0-5.20); Red Cell Distribution Width 13.3 % (11.8-14.3); White Blood Cell 9.8 10^3/uL (4.4-10.8)
--- NOTE | 2024-11-21 21:50 | ED.PDOC ---
History of Present Illness HPI Comments 69 y/o F, with PMHx of HTN, HLD, CVA, TIAs, and arthritis presents to the ED for CC of elevated blood pressure. Patient states, that she has been having hypertensive blood pressure reading onset, last night (11/21/24). Patient reports, last blood pressure check to have read at 200/90mmHg. Patient endorses, that she is currently not taking any blood pressure medications d/t adverse affects. Patient denies headache, chest pain, dizziness, lightheadedness, nausea, vomiting, or weakness. No other symptoms or modifying factors present at this time. Patient's blood pressure was 217/104 at arrival and the patient was tachycardic. Time Seen by MD: 21:39 Primary Care Provider: Ketan Reviewed Notes: Nurses Notes, Medications, Allergies Allergies: Coded Allergies: Penicillins (Verified Allergy, Intermediate, 06/18/11) Home Meds Active Scripts Clonidine Hydrochloride (Clonidine Hcl) 0.2 Mg Tab, 1 TAB PO Q12HP PRN, #20 TAB 0 Refills To be utilize if systolic blood pressure is above 160 or diastolic pressure is above 90. Prov:SHABBIR HERNANDEZ 11/22/24 Lisinopril (Lisinopril) 10 Mg Tab, 10 MG PO DAILY, #30 TAB 1 Refill Prov:SHABBIR HERNANDEZ 11/22/24 Losartan Potassium (Losartan Potassium) 50 Mg Tab, 50 MG PO DAILY for 30 Days, #30 TAB Prov:GEOVANNY RIVERA MD 02/04/24 Metoprolol Tartrate (Metoprolol Tartrate) 25 Mg Tab, 1 TAB PO BID, #60 TAB 5 Refills Prov:MED NUNEZ MD 02/02/24 Amlodipine Besylate (Amlodipine Besylate) 10 Mg Tab, 1 TAB PO DAILY, #30 TAB 5 Refills Prov:MED NUNEZ MD 02/02/24 Valsartan (Diovan) 80 Mg Tab, 80 MG PO DAILY for 30 Days, #30 TAB Prov:SONIA RAMOS MD 10/11/21 Clopidogrel Bisulfate (Plavix) 75 Mg Tab, 1 TAB PO DAILY, #30 TAB Prov:SONIA RAMOS MD 10/11/21 Atorvastatin Calcium (ATORVASTATIN CALCIUM) 40 Mg Tab, 1 TAB PO DAILY, #30 TAB 5 Refills Prov:TERESA FELDER MD 07/12/21 Levofloxacin Hemihydrate (LEVOFLOXACIN) 750 Mg Tab, 1 TAB PO DAILY, #5 TAB Prov:TERESA FELDER MD 07/07/21 Amlodipine Besylate (NORVASC TABLET) 5 Mg Tb, 5 MG PO DAILY for 30 Days, #30 TAB Prov:TERESA FELDER MD 07/07/21 Information Source: Patient Mode of Arrival: Ambulatory Severity: Moderate Timing: Days Duration: Since onset Past Medical History PAST MEDICAL HISTORY: Arthritis, CVA, High Lipids, HTN, Thyroid, TIA Surgical History: Appendectomy, Hysterectomy, Tonsillectomy, Tubal Ligation 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 all 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 AND 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 Hx Family History Family History: No family hx of DM, No family hx of Heart dona, No family hx of HTN, No family hx ofKidney dona, No family hx of Liver dona, No family hx of Lung dona, No family hx of Stroke, Family hx of Cancer Social History Smoker: Non-Smoker Alcohol: Denies ETOH Use Drugs: Denies Drug Use Lives In: Home Constitutional: denies: chills, diaphoresis, fatigue, fever, malaise, sweats, weakness, others EENTM: denies: blurred vision, double vision, ear bleeding, ear discharge, ear drainage, ear pain, ear ringing, eye pain, eye redness, hearing loss, mouth pain, mouth swelling, nasal discharge, nose bleeding, nose congestion, nose pain, photophobia, tearing, throat pain, throat swelling, voice changes, others Respiratory: denies: cough, hemoptysis, orthopnea, SOB at rest, shortness of breath, SOB with excertion, stridor, wheezing, others Cardiovascular: denies: chest pain, dizzy spells, diaphoresis, Dyspnea on exertion, edema, irregular heart beat, left arm pain, lightheadedness, palpitations, PND, syncope, others Gastrointestinal: denies: abdomen distended, abdominal pain, blood streaked bowels, constipated, diarrhea, dysphagia, difficulty swallowing, hematemesis, melena, nausea, poor appetite, poor fluid intake, rectal bleeding, rectal pain, vomiting, others Genitourinary: denies: abnormal vagina bleeding, burning, dyspareunia, dysuria, flank pain, frequency, hematuria, incontinence, pain, , vagina discharge, urgency, others Neurological: denies: dizziness, fainting, headache, left sided numbness, left sided weakness, numbness, paresthesia, pre-existing deficit, right sided numbness, right sided weakness, seizure, speech problems, tingling, tremors, weakness, others Musculoskeletal: denies: back pain, gout, joint pain, joint swelling, muscle pain, muscle stiffness, neck pain, others Integumetry: denies: bruises, change in color, change in hair/nails, dryness, laceration, lesions, lumps, rash, wounds, others Allergic/Immunocompromised: denies: Difficulty Healing, Frequent Infections, Hives, Itching, others Hematologic/Lymphatic: denies: anemia, blood clots, easy bleeding, easy bruising, swollen glands, others Endocrine: denies: excessive hunger, excessive sweating, excessive thirst, excessive urination, flushing, intolerance to cold, intolerance to heat, unexplained weight gain, unexplained weight loss, others Psychiatric: denies: anxiety, bipolar disorder, depression, hopeless, panic disorder, schizophrenia, sleepless, suicidal, others All Other Systems: Reviewed and Negative Physical Exam General Appearance: No Apparent Distress (Patient was in no distress at time of evaluation. Patient has no complaints.), Normal HEENT: Normal ENT Inspection, Pharynx Normal, TMs Normal Neck: Full Range of Motion, Non-Tender, Normal, Normal Inspection Respiratory: Chest Non-Tender, Lungs Clear, No Accessory Muscle Use, No Respiratory Distress, Normal Breath Sounds Cardiovascular: No Edema, No JVD, No Murmur, No Gallop, Normal Peripheral Pulses, Tachycardia Breast Exam: Deferred Gastrointestinal: No Organomegaly, Non Tender, No Pulsatile Mass, Normal Bowel Sounds, Soft Genitalia: Deferred Pelvic: Deferred Rectal: Deferred Extremities: No calf tenderness, Normal capillary refill, Normal inspection, Normal range of motion, Non-tender, No pedal edema Neurologic: Alert, No Motor Deficits, Normal Affect, Normal Mood, No Sensory Deficits Cerebellar Function: Normal Reflexes: Normal Skin: Dry, Normal Color, Warm Lymphatic: No Adenopathy Was a procedure done? Was a procedure done?: No Differential Dx Considerations may include: hypertensive crisis, electrolyte abnormality, sepsis X-Ray, Labs, Meds, VS Vital Signs Date Time Temp Pulse Resp B/P (MAP) Pulse Ox O2 Delivery O2 Flow Rate FiO2 11/22/24 01:53 58 11/22/24 01:14 70 18 120/60 (80) 97 11/22/24 00:32 120/60 11/21/24 23:32 177/84 11/21/24 23:01 89 18 177/84 (115) 97 11/21/24 22:54 177/84 11/21/24 21:56 98.0 106 16 217/104 (141) 97 98.0 11/21/24 21:54 217/104 Lab Test 11/21/24 21:38 Range/Units White Blood Count 9.8 4.4-10.8 10^3/uL Red Blood Count 5.28 H 4.0-5.20 10^6/uL Hemoglobin 16.6 H 12.2-16.2 g/dL Hematocrit 47.8 H 36.0-46.0 % Mean Corpuscular Volume 90.5 80.0-100.0 fL Mean Corpuscular Hemoglobin 31.4 28.0-32.0 pg Mean Corpuscular Hemoglobin Concent 34.7 32.0-36.0 g/dL Red Cell Distribution Width 13.3 11.8-14.3 % Platelet Count 274 140-450 10^3/uL Mean Platelet Volume 8.5 6.9-10.8 fL Neutrophils (%) (Auto) 62.0 37.0-80.0 % Lymphocytes (%) (Auto) 30.8 10.0-50.0 % Monocytes (%) (Auto) 4.4 0.0-12.0 % Eosinophils (%) (Auto) 1.9 0.0-7.0 % Basophils (%) (Auto) 0.9 0.0-2.0 % Neutrophils # (Auto) 6.1 1.6-8.6 10 ^3/uL Lymphocytes # (Auto) 3.0 0.4-5.4 10 ^3/uL Monocytes # (Auto) 0.4 0-1.3 10 ^3/uL Eosinophils # (Auto) 0.2 0-0.8 10 ^3/uL Basophils # (Auto) 0.1 0-0.2 10 ^3/uL Nucleated Red Blood Cells 0.0 % Sodium Level 139 136-145 mmol/L Potassium Level 4.9 3.5-5.1 mmol/L Chloride Level 101 98-107 mmol/L Carbon Dioxide Level 25 20-31 mmol/L Anion Gap 13 5-15 Blood Urea Nitrogen 18 9-23 mg/dL Creatinine 1.00 0.550-1.02 mg/dL Glomerular Filtration Rate Calc 61 >90 mL/min BUN/Creatinine Ratio 18.0 10.0-20.0 Serum Glucose 97 74-106 mg/dL Calcium Level 11.5 H 8.7-10.4 mg/dL Total Bilirubin 0.7 0.2-1.0 mg/dL Aspartate Amino Transferase (AST) 35 13-40 U/L Alanine Aminotransferase (ALT) 34 7-40 U/L Alkaline Phosphatase 101 46-116 U/L Troponin I High Sensitivity 73 *H </=34 ng/L Total Protein 8.2 5.7-8.2 g/dL Albumin 5.3 H 3.2-4.8 g/dL Current Medications Medications (Trade) Dose Ordered Sig/Jaya Route Start Time Stop Time Status Last Admin Clonidine HCl (Catapres Tablet) 0.2 mg ONCE ONCE PO 11/21/24 21:45 11/21/24 21:46 DC 11/21/24 21:54 Clonidine HCl (Catapres Tablet) 0.2 mg ONCE ONCE PO 11/21/24 23:22 11/21/24 23:23 DC 11/21/24 23:32 X-Ray, Labs, Meds, VS Comment Spent time discussing patient's blood pressure concerns with her. Blood pressure was well reduced and in a very comfortable zone at time of discharge. Spent time discussing the with the patient the fact that she had an elevated troponin on a single reading. Patient states she would like to go home and did not want to stay for additional troponin testing. I advised the patient that her EKG was questionable as a revealed a sinus rhythm of 58, probable left atrial enlargement as well as anterior infarct and possible ST-elevation. EKG was sent to Cardiology for review. Dr. Golden and I spoke and he advised with the patient is not having a STEMI event. I did not want the patient is signed an AMA form as she was stable at time of discharge and had 0 complaints of chest pain. I believe the elevated troponin was related to her poor blood pressure control. I advised the patient to please return to the ED if her blood pressure causes physiologic concerns or the patient begins to have definitive chest pain. Advised patient utilize 911 if needed. Patient needs to follow up with the primary care provider for discussions related to proper blood pressure medication management as well as continued evaluation of possible cardiac concerns. Time of 1ST Reevaluation: 01:24 Reevaluation 1ST: Improved Consultation: PCP, Cardiology Patient Education/Counseling: Diagnosis, Treatment Family Education/Counseling: Diagnosis, Treatment, No Family Present Departure 1 Departure Time of Disposition: :25 Impression: Primary Impression: Hypertensive urgency Disposition: HOME / SELF CARE / HOMELESS Condition: Stable Additional Instructions: Advised patient utilize medication if systolic pressures above 160 or diastolic pressures above 90. Patient should follow up with the primary care provider for discussions related to proper blood pressure management. Advised patient utilize the lisinopril daily as directed and discuss that medication with her provider. e-Prescriptions Clonidine Hydrochloride (Clonidine Hcl) 0.2 Mg Tab 1 TAB PO Q12HP PRN, #20 TAB 0 Refills To be utilize if systolic blood pressure is above 160 or diastolic pressure is above 90. Prov: SHABBIR HERNANDEZ PAC 11/22/24 Lisinopril (Lisinopril) 10 Mg Tab 10 MG PO DAILY, #30 TAB 1 Refill Prov: SHABBIR HERNANDEZ PAC 11/22/24 Discharged With: Self, Spouse Critical Care Note Critical Care Time?: No Stability Stability form required: No Heart Score Heart Score: Heart Score Response (Comments) Value History N/A 0 EKG N/A 0 Age N/A 0 Risk Factors N/A 0 Troponin N/A 0 Total 0 I personally scribed for SHABBIR HERNANDEZ PAC ([email or web address]) on 11/21/24 at 21:50. Electronically submitted by Ruba Walsh ([email or web address]). SHABBIR HERNANDEZ PAC November 21, 2024 21:50
[2024-11-21] MEDS: cloNIDine HCL 0.1 MG TAB PO ONE ×2 (21:54→23:32)
[2024-11-21 21:56] VITALS: TEMP 98
[2024-11-21 22:04] LABS: Alanine Aminotransferase 34 U/L (7-40); Alkaline Phosphatase 101 U/L (46-116); Anion Gap 13 (5-15); Aspartate Aminotransferase 35 U/L (13-40); Bilirubin, Total 0.7 mg/dL (0.2-1.0); Blood Urea Nitrogen 18 mg/dL (9-23); Carbon Dioxide 25 mmol/L (20-31); Chloride 101 mmol/L (98-107); Glucose 97 mg/dL (74-106); Potassium 4.9 mmol/L (3.5-5.1); Sodium 139 mmol/L (136-145)
[2024-11-21 22:47] LABS: Albumin 5.3 g/dL (3.2-4.8); Calcium 11.5 mg/dL (8.7-10.4); Total Protein 8.2 g/dL (5.7-8.2)
[2024-11-22 01:14] VITALS: BP 120/60; RESP 18; O2SAT 97
[2024-11-22] MEDS ORDERED: LISI10TA34 PO (01:27)
[2024-11-22] MEDS ORDERED: CLON0.2T PO (01:27)
[2024-11-22 01:53] VITALS: PULSE 58
--- NOTE | 2024-11-24 13:14 | ECG ---
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
== END 2024-11-22 03:02 | disposition home or self-care (01) ==
LOC: ER 21:00
DX: I16.0 Hypertensive urgency (principal); I10 Essential (primary) hypertension; E78.5 Hyperlipidemia, unspecified; M19.90 Unspecified osteoarthritis, unspecified site; Z90.710 Acquired absence of both cervix and uterus; Z90.49 Acquired absence of other specified parts of digestive tract; Z88.0 Allergy status to penicillin; Z86.73 Personal history of transient ischemic attack (TIA), and cerebral infarction without residual deficits; Z79.899 Other long term (current) drug therapy; Z79.02 Long term (current) use of antithrombotics/antiplatelets
CPT/HCPCS: 36415; 80053; 84484; 85025; 93005

== ENCOUNTER 2025-06-14 13:08 | Emergency (ER) | payer OTHER ==
[~2025-06-14] VITALS: Ht 154.9 cm; Wt 65.9 kg
[~2025-06-14 13:08] MED LIST changes: +CLON0.2T PO; +LISI10TA34 PO
--- NOTE | 2025-06-14 13:51 | ED.PDOC ---
Musculoskeletal HPI Comments 70 year old female with PMHx arthritis, CVA, HLD, HTN, TIA, thyroid disease presents to the ED with a chief complaint of LT leg pain onset 2 weeks. Patient has been experiencing LT leg pain, swelling for the past 2 weeks. She noticed pain began spontaneously, has worsen past few days. She went to urgent care, was referred to ED to r/o blood clots. Denies fall, injury, numbness/tingling, dizziness, headache, nausea, vomiting, fever, chills, chest pain, shortness of breath, recent travel, long plane ride. NO other symptoms or modifying factors present at this time. Chief Complaint: Lower Extremity Time Seen by MD: 14:00 Primary Care Provider: Ketan Reviewed Notes: Medications, Allergies Allergies: Coded Allergies: Penicillins (Verified Allergy, Intermediate, 06/18/11) Home Meds Active Scripts Clonidine Hydrochloride (Clonidine Hcl) 0.2 Mg Tab, 1 TAB PO Q12HP PRN, #20 TAB 0 Refills To be utilize if systolic blood pressure is above 160 or diastolic pressure is above 90. Prov:SHABBIR HERNANDEZ 11/22/24 Lisinopril (Lisinopril) 10 Mg Tab, 10 MG PO DAILY, #30 TAB 1 Refill Prov:SHABBIR HERNANDEZ 11/22/24 Losartan Potassium (Losartan Potassium) 50 Mg Tab, 50 MG PO DAILY for 30 Days, #30 TAB Prov:GEOVANNY RIVERA MD 02/04/24 Metoprolol Tartrate (Metoprolol Tartrate) 25 Mg Tab, 1 TAB PO BID, #60 TAB 5 Refills Prov:MED NUNEZ MD 02/02/24 Amlodipine Besylate (Amlodipine Besylate) 10 Mg Tab, 1 TAB PO DAILY, #30 TAB 5 Refills Prov:MED NUNEZ MD 02/02/24 Valsartan (Diovan) 80 Mg Tab, 80 MG PO DAILY for 30 Days, #30 TAB Prov:SONIA RAMOS MD 10/11/21 Clopidogrel Bisulfate (Plavix) 75 Mg Tab, 1 TAB PO DAILY, #30 TAB Prov:SONIA RAMOS MD 10/11/21 Atorvastatin Calcium (ATORVASTATIN CALCIUM) 40 Mg Tab, 1 TAB PO DAILY, #30 TAB 5 Refills Prov:TERESA FELDER MD 07/12/21 Levofloxacin Hemihydrate (LEVOFLOXACIN) 750 Mg Tab, 1 TAB PO DAILY, #5 TAB Prov:TERESA FELDER MD 07/07/21 Amlodipine Besylate (NORVASC TABLET) 5 Mg Tb, 5 MG PO DAILY for 30 Days, #30 TAB Prov:TERESA FELDER MD 07/07/21 Information Source: Patient, Spouse Mode of Arrival: Ambulatory Location: Left Extremity Location: Leg Timing: Weeks Prehospital treatment: None Severity: Moderate Bear Weight: Limited Pain: Moderate Mechanism: Spontaneous Circumstances: Spontaneous Onset of Symptoms: Spontaneous Symptoms: Swelling, Pain DVT Risk Factors: NONE Associated signs and symptoms: Swelling, Leg pain Past Medical History PAST MEDICAL HISTORY: Arthritis, CVA, High Lipids, HTN, Thyroid, TIA Surgical History: Appendectomy, Hysterectomy, Tonsillectomy, Tubal Ligation 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 Family History Family History: No family hx of DM, No family hx of Heart dona, No family hx of HTN, No family hx ofKidney dona, No family hx of Liver dona, No family hx of Lung dona, No family hx of Stroke, Family hx of Cancer Social History Smoker: Non-Smoker Alcohol: Denies ETOH Use Drugs: Denies Drug Use Lives In: Home Constitutional: denies: chills, diaphoresis, fatigue, fever, malaise, sweats, weakness, others EENTM: denies: blurred vision, double vision, ear bleeding, ear discharge, ear drainage, ear pain, ear ringing, eye pain, eye redness, hearing loss, mouth pain, mouth swelling, nasal discharge, nose bleeding, nose congestion, nose pain, photophobia, tearing, throat pain, throat swelling, voice changes, others Respiratory: denies: cough, hemoptysis, orthopnea, SOB at rest, shortness of breath, SOB with excertion, stridor, wheezing, others Cardiovascular: denies: chest pain, dizzy spells, diaphoresis, Dyspnea on exertion, edema, irregular heart beat, left arm pain, lightheadedness, palpitations, PND, syncope, others Gastrointestinal: denies: abdomen distended, abdominal pain, blood streaked bowels, constipated, diarrhea, dysphagia, difficulty swallowing, hematemesis, melena, nausea, poor appetite, poor fluid intake, rectal bleeding, rectal pain, vomiting, others Genitourinary: denies: abnormal vagina bleeding, burning, dyspareunia, dysuria, flank pain, frequency, hematuria, incontinence, pain, , vagina discharge, urgency, others Neurological: denies: dizziness, fainting, headache, left sided numbness, left sided weakness, numbness, paresthesia, pre-existing deficit, right sided numbness, right sided weakness, seizure, speech problems, tingling, tremors, weakness, others Musculoskeletal: reports: others (Lt leg pain, swelling); denies: back pain, gout, joint pain, joint swelling, muscle pain, muscle stiffness, neck pain Integumetry: denies: bruises, change in color, change in hair/nails, dryness, laceration, lesions, lumps, rash, wounds, others Allergic/Immunocompromised: denies: Difficulty Healing, Frequent Infections, Hives, Itching, others Hematologic/Lymphatic: denies: anemia, blood clots, easy bleeding, easy bruising, swollen glands, others Endocrine: denies: excessive hunger, excessive sweating, excessive thirst, excessive urination, flushing, intolerance to cold, intolerance to heat, unexpla ined weight gain, unexplained weight loss, others Psychiatric: denies: anxiety, bipolar disorder, depression, hopeless, panic disorder, schizophrenia, sleepless, suicidal, others All Other Systems: Reviewed and Negative Physical Exam General Appearance: No Apparent Distress, Normal HEENT: Normal ENT Inspection, Pharynx Normal, TMs Normal Neck: Full Range of Motion, Non-Tender, Normal, Normal Inspection Respiratory: Chest Non-Tender, Lungs Clear, No Accessory Muscle Use, No Respiratory Distress, Normal Breath Sounds Cardiovascular: No Edema, No JVD, No Murmur, No Gallop, Normal Peripheral Pulses, Regular Rate/Rhythm Breast Exam: Deferred Gastrointestinal: No Organomegaly, Non Tender, No Pulsatile Mass, Normal Bowel Sounds, Soft Genitalia: Deferred Pelvic: Deferred Rectal: Deferred Extremities: No calf tenderness, Normal capillary refill, Normal inspection, Normal range of motion, Non-tender, No pedal edema Musculoskeletal : Apperance: Normal Neurologic: Alert, bi lead II-XII nml as Tested, No Motor Deficits, Normal Affect, Normal Mood, No Sensory Deficits Cerebellar Function: Normal Reflexes: Normal Skin: Dry, Normal Color, Warm Lymphatic: No Adenopathy Was a procedure done? Was a procedure done?: No Differential Diagnosis EXT Differential Diagnosis: Sprain X-Ray, Labs, Meds, VS Vital Signs Date Time Temp Pulse Resp B/P (MAP) Pulse Ox O2 Delivery O2 Flow Rate FiO2 06/14/25 13:09 97.7 68 12 195/79 98 97.7 Lab Test 06/14/25 14:37 Range/Units White Blood Count 8.2 4.4-10.8 10^3/uL Red Blood Count 4.99 4.0-5.20 10^6/uL Hemoglobin 15.7 12.2-16.2 g/dL Hematocrit 45.5 36.0-46.0 % Mean Corpuscular Volume 91.1 80.0-100.0 fL Mean Corpuscular Hemoglobin 31.4 28.0-32.0 pg Mean Corpuscular Hemoglobin Concent 34.5 32.0-36.0 g/dL Red Cell Distribution Width 12.9 11.8-14.3 % Platelet Count 263 140-450 10^3/uL Mean Platelet Volume 8.2 6.9-10.8 fL Neutrophils (%) (Auto) 68.3 37.0-80.0 % Lymphocytes (%) (Auto) 24.8 10.0-50.0 % Monocytes (%) (Auto) 5.6 0.0-12.0 % Eosinophils (%) (Auto) 0.9 0.0-7.0 % Basophils (%) (Auto) 0.4 0.0-2.0 % Neutrophils # (Auto) 5.6 1.6-8.6 10 ^3/uL Lymphocytes # (Auto) 2.0 0.4-5.4 10 ^3/uL Monocytes # (Auto) 0.5 0-1.3 10 ^3/uL Eosinophils # (Auto) 0.1 0-0.8 10 ^3/uL Basophils # (Auto) 0 0-0.2 10 ^3/uL Nucleated Red Blood Cells 0.1 % D-Dimer, Quantitative 0.48 0.0-0.49 mg/L FEU Sodium Level 142 136-145 mmol/L Potassium Level 4.1 3.5-5.1 mmol/L Chloride Level 102 98-107 mmol/L Carbon Dioxide Level 29 20-31 mmol/L Anion Gap 11 5-15 Blood Urea Nitrogen 16 9-23 mg/dL Creatinine 1.02 0.550-1.02 mg/dL Glomerular Filtration Rate Calc 59 >90 mL/min BUN/Creatinine Ratio 15.7 10.0-20.0 Serum Glucose 105 74-106 mg/dL Calcium Level 10.4 8.7-10.4 mg/dL Time of 1ST Reevaluation: 14:30 Reevaluation 1ST: Unchanged Patient Education/Counseling: Diagnosis, Treatment, Prognosis Family Education/Counseling: Diagnosis, Treatment, Prognosis Departure 1 Departure Time of Disposition: 15:45 (Patient's blood work is benign. Patient likely with a strain of her muscles. We will discharge patient with outpatient follow up) Impression: Primary Impression: Left knee sprain Disposition: HOME / SELF CARE / HOMELESS Condition: Stable Referrals: MANUEL SHEPPARD MD Additional Instructions: Your blood work was benign and negative for a blood clot. You likely sprained her knee. You can Enrique wrap your knee for comfort. You can apply ice as needed for swelling. You can take Tylenol and Motrin as needed for pain. You can use crutches as needed. You should follow up with our orthopedic surgeon within 1 week to ensure your healing well. If your symptoms worsen, or you have any other concerns, then please return to the Emergency Room. Discharged With: Self Critical Care Note Critical Care Time?: No Stability Stability form required: No Heart Score Heart Score: Heart Score Response (Comments) Value History N/A 0 EKG N/A 0 Age N/A 0 Risk Factors N/A 0 Troponin N/A 0 Total 0 I personally scribed for BRYON LAIRD MD ([email or web address]) on 06/14/25 at 13:51. Electronically submitted by Graciela Ramirez ([email or web address]). I personally scribed for BRYON LAIRD MD ([email or web address]) on 06/14/25 at 14:09. Electronically submitted by Graciela Ramirez ([email or web address]). BRYON LAIRD MD Jun 14, 2025 13:51
--- NOTE | 2025-06-14 14:43 | DVH ---
CLINICAL INDICATION: left knee pain TECHNIQUE: 3 radiographic views of the left knee were obtained. COMPARISON: None FINDINGS/IMPRESSION: Bony alignment appears normal. No fractures or dislocations. No radiographic findings of joint effusion.
[2025-06-14 14:49] LABS: Hematocrit 45.5 % (36.0-46.0); Hemoglobin 15.7 g/dL (12.2-16.2); Mean Corpuscular Hemoglobin 31.4 pg (28.0-32.0); Mean Corpuscular Volume 91.1 fL (80.0-100.0); Nucleated Red Blood Cells % 0.1 %
[2025-06-14 15:07] LABS: Chloride 102 mmol/L (98-107); Potassium 4.1 mmol/L (3.5-5.1); Sodium 142 mmol/L (136-145)
[2025-06-14 15:08] LABS: Anion Gap 11 (5-15); Carbon Dioxide 29 mmol/L (20-31)
[2025-06-14 15:13] LABS: BUN/Creatinine Ratio 15.7 (10.0-20.0); Blood Urea Nitrogen 16 mg/dL (9-23); Glucose 105 mg/dL (74-106)
[2025-06-14 15:14] LABS: Calcium 10.4 mg/dL (8.7-10.4)
[2025-06-14 16:15] VITALS: BP 182/102; PULSE 67; RESP 18; TEMP 98.5; O2SAT 98
[2025-06-14] MEDS: HYDROcodone-ACET 10/325MG TAB PO ONE (16:37)
== END 2025-06-14 16:37 | disposition home or self-care (01) ==
LOC: ER 13:08
DX: S83.92XA Sprain of unspecified site of left knee, initial encounter (principal); E78.5 Hyperlipidemia, unspecified; I10 Essential (primary) hypertension; M19.90 Unspecified osteoarthritis, unspecified site; Z79.899 Other long term (current) drug therapy; Z90.710 Acquired absence of both cervix and uterus; Z90.49 Acquired absence of other specified parts of digestive tract; Z88.0 Allergy status to penicillin; Z86.73 Personal history of transient ischemic attack (TIA), and cerebral infarction without residual deficits; Z79.02 Long term (current) use of antithrombotics/antiplatelets; X58.XXXA Exposure to other specified factors, initial encounter; Y93.89 Activity, other specified; Y92.89 Other specified places as the place of occurrence of the external cause; Y99.8 Other external cause status
CPT/HCPCS: 36415; 73562; 80048; 85025; 85379